=== PATIENT | female | born 1945 | race Caucasian/White ===

== ENCOUNTER 2017-04-16 09:49 | Day surgery (SDC) | payer OTHER, BC ==
[2017-04-09 09:29] VITALS: BMI 41.3
[~2017-04-16 09:49] MED LIST: BUPIVACAINE HCL/PF 0.25% (2.5MG/ML) 10 ML VIAL IJ ONE; methylPREDNISolone ACET (DEPO) 40 MG/1 ML VIAL IM ONE
[2017-04-16] MEDS ORDERED: oxyCODONE HCL 10 MG SUSTAINED ACTING TABLET PO STA (10:54)
[2017-04-16] MEDS ORDERED: CEFAZOLIN 2 GM in DEXTROSE 5%-WATER - 100 ML IVPB ONE (10:54)
[2017-04-16] MEDS ORDERED: MIDAZOLAM HCL 2 MG/2 ML SINGLE DOSE VIAL ONE (11:13)
[2017-04-16] MEDS ORDERED: LIDOCAINE 1%/EPI 1:100000 (20 ML MULTI DOSE VIAL) ONE (11:56)
[2017-04-16] MEDS ORDERED: methylPREDNISolone ACET (DEPO) 40 MG/1 ML VIAL ONE (11:56)
[2017-04-16] MEDS ORDERED: BUPIVACAINE HCL/PF 2.5 MG/ML - 30 ML VIAL IJ ONE (11:56)
[2017-04-16] MEDS ORDERED: THROMBIN (BOVINE) 5,000 UNIT VIAL TP ONE ×2 (11:56→13:28)
--- NOTE | 2017-04-16 11:57 | HP ---
History & Physical Update - History History: No Change - Physical Physical: No Change - Assessment Assessment: No Change - Plan Plan: No Change
[2017-04-16] MEDS ORDERED: BUPIVACAINE HCL/PF 0.5% (5MG/ML) 10 ML VIAL ONE (12:05)
[2017-04-16] MEDS ORDERED: ceFAZolin SODIUM 1 GM VIAL ONE (12:29)
[2017-04-16] MEDS ORDERED: DEXAMETHASONE SOD PHOSPHATE 4 MG/1 ML VIAL ONE (12:32)
[2017-04-16] MEDS ORDERED: ONDANSETRON 4 MG/2 ML VIAL ONE (12:32)
[2017-04-16] MEDS ORDERED: LIDOCAINE 1%/EPI 1:100000 (50 ML MULTI DOSE VIAL) INF ONE (12:35)
[2017-04-16] MEDS ORDERED: PHENYLEPHRINE HCL 10 MG/1 ML SINGLE DOSE VIAL ONE (12:45)
[2017-04-16] MEDS ORDERED: GELATIN SPONGE,ABSORBABLE 1 GM PACKET TP ONE (13:28)
[2017-04-16] MEDS ORDERED: methylPREDNISolone ACET (DEPO) 40 MG/1 ML VIAL IM ONE (14:02)
[2017-04-16] MEDS ORDERED: BUPIVACAINE HCL/PF 0.25% (2.5MG/ML) 10 ML VIAL IJ ONE (14:03)
--- NOTE | 2017-04-16 14:14 | OP ---
Operative Note - Note: Operative Date: 04/16/17 Pre-Operative Diagnosis: spinal stenosis Operation: L2/3 laminectomy (bilateral) Post-Operative Diagnosis: Same as Pre-op Surgeon: Huan Aranda Chief Mate: Suleman Beck Anesthesiologist/AERONAUTICAL RESEARCH ENGINEER: Zoey Simpson Anesthesia: Spinal Estimated Blood Loss (mls): 25 Fluid Volume Replaced (mls): 1,000 Operative Report Dictated: Yes
--- NOTE | 2017-04-16 14:15 | SURG ---
Surgery Communications Systems Engineer Note Communications Systems Engineer: Suleman Beck PA-C Date of Service: 04/16/17 Diagnosis: Spinal stenosis Procedure: L2/3 laminectomy (bilateral) I was present for the entirety of the operative procedure. For further detail, please refer to operative report. Visit type - Case Type Case Type: Scheduled Admission - New patient This patient is new to me today: Yes Date on this admission: 04/16/17
[2017-04-16] MEDS ORDERED: ACETAMINOPHEN 1000 MG/100 ML VIAL (NON FORMULARY) IVPB ONE (14:17)
[2017-04-16] MEDS ORDERED: traMADol HCL 50 MG TABLET PO ONE (14:18)
[2017-04-16] MEDS ORDERED: oxyCODONE HCL 5 MG TABLET PO PRN (14:36)
[2017-04-16] MEDS ORDERED: ONDANSETRON 4 MG/2 ML VIAL IVPUSH PRN (14:36)
[2017-04-16] MEDS ORDERED: LACTATED RINGERS SOLUTION 1,000 ML IV SCH (14:45)
[2017-04-16 15:30] VITALS: TEMP 98.5
--- NOTE | 2017-04-16 16:17 | OP ---
DATE OF OPERATION: 04/16/2017 PREOPERATIVE DIAGNOSIS: Spinal stenosis, L2-L3. POSTOPERATIVE DIAGNOSIS: Spinal stenosis, L2-L3. PROCEDURE PERFORMED: Laminectomy, L2-L3. SURGEON: Huan Aranda MD AUTOMOTIVE GLAZIER: ADDIE Truong ESTIMATED BLOOD LOSS: 50 mL. INTRAVENOUS FLUIDS: Per Anesthesia. ANESTHESIA: Spinal. COMPLICATIONS: There were none. DISPOSITION: The patient was brought to the PACU in stable condition. INDICATION FOR SURGERY: The patient is a 72-year-old female who has been suffering from pain from her back and leg. X-rays and MRI were completed which noted that she has spinal stenosis at L2-3. She had gone through an exhaustive course of treatment for this, which included medications, physical therapy, as well as injections. Unfortunately, pain continued to persist, despite all of this. At this point, risks, benefits, and alternatives were discussed, and the patient consented to surgery. OPERATIVE NOTE: The patient was brought to the operating room by the Anesthesia staff. After appropriate patient identification was performed, spinal anesthesia was given. She was placed prone onto the [place] frame with all areas of bony prominences well-padded at this time. Two needles were placed into her back to isabella off the L2-3 level and x-rays taken to confirm this was correct. The needle was removed and 10 mL of lidocaine with epinephrine was injected into her back, at this time. Her back was prepped and draped in a sterile manner. At this point, a timeout was completed. Incision was made from the top of L2 down to the bottom of L3. Dissection was carried down to the fascia. The fascia was then split open, at this time, and appropriate retractors were then placed in. A spinal needle was placed into the L2 lamina to isabella off the L2-3 level. An x-ray was taken to confirm this was correct. At this point, the microscope was brought in. The interspinous ligament at L2-3 was removed. Portions of the L2 and L3 lamina were removed. A complete decompression was performed, such that by the end of the procedure, the L3 nerve root appeared to be well decompressed. All bleeding was well controlled at that time. Steroid was placed over the nerve root and Floseal was placed over that. The fascia was closed with a number 1 Vicryl suture. The subcutaneous tissue was closed with 2-0 Vicryl suture. The skin was closed with 3-0 Monocryl suture. Dermabond was applied. Steri-Strips were applied. A sterile dressing was applied. The patient was placed supine on the OR bed and brought to the PACU in stable condition. HUAN ARANDA M.D. SHAY/[id number]
[2017-04-16 16:52] VITALS: BP 159/80; PULSE 96
== END 2017-04-16 16:45 | disposition home or self-care (01) ==
LOC: FASU 09:49
PROVIDERS: ATTEND Orthopaedic Surgery Orthopaedic Surgery of the Spine
PROC: 01NB0ZZ Release Lumbar Nerve, Open Approach (ICD-10-PCS; principal; 2017-04-16 12:48)
DX: M48.06 Spinal stenosis, lumbar region (principal)
CPT/HCPCS: 72100-TC; 76000-TC; 94760